=== PATIENT | male | born 1985 | race Caucasian/White ===

== ENCOUNTER 2017-11-25 13:50 | Inpatient (IN) ==
[2017-11-25] MEDS ORDERED: LOPERAMIDE 2 MG CAPSULE PO STA (14:51)
[2017-11-25] MEDS ORDERED: SODIUM CHLORIDE 0.9% 2,000 ML IV STA (14:51)
[2017-11-25] MEDS ORDERED: ONDANSETRON 4 MG/2 ML VIAL IV STA (14:51)
[2017-11-25] MEDS ORDERED: ONDANSETRON 4 MG/2 ML VIAL ONE ×2 (15:07→15:25)
[2017-11-25] MEDS ORDERED: LOPERAMIDE 2 MG CAPSULE ONE (15:25)
[2017-11-25 15:26] LABS: Basophils # 0.1 10*3/uL (0.0-0.2); Basophils % 0.4 % (0.0-0.8); Hematocrit 42.6 VOL% (42.0-52.0); Hemoglobin 15.4 GM/DL (14.0-18.0); Immature Granulocytes % 0.4 %; Immature Granulocytes Absolute 0.05 #; Lymphocytes # 0.3 10*3/uL (1.4-4.0); Lymphocytes % 2.6 % (21.2-54.2); Mean Corpuscular HGB Conc 36.2 GM/DL (32-36); Mean Corpuscular Hemoglobin 31 PG (27-34); Mean Corpuscular Volume 85.9 FL (87-102); Mean Platelet Volume 10.4 FL (9.6-12.0); Monocytes # 0.6 10*3/uL (0.11-0.8); Monocytes % 4.6 % (1.7-12.7); Neutrophils # 11.9 10*3/uL (1.4-7.4); Platelet Count 287 T/CUMM (130-400); Red Blood Count 4.96 MC/CUMM (3.8-5.5); Red Cell Distribution Width 13.2 % (9.3-17.3); White Blood Count 12.9 T/CUMM (4-12)
[2017-11-25 15:45] LABS: Albumin 3.9 G/DL (3.4-5.0); Bilirubin,Total 0.9 MG/DL (0.2-1.0); Calcium 8.6 MG/DL (8.5-10.1); Osmolality,Calculated 287.3 MOS/KG (273-304); Potassium 2.9 MMOL/L (3.5-5.1); Total Protein 7.6 G/DL (6.4-8.3)
[2017-11-25 18:11] LABS: Band Neutrophils 2 % (0-10); Lymphocytes 1 % (20-55); Platelet Estimate Normal; Segmented Neutrophils 95 % (50-85); Total Cells Counted 100
[2017-11-25] MEDS ORDERED: ONDANSETRON 4 MG/2 ML VIAL IV PRN (18:39)
[2017-11-25] MEDS: SODIUM CHLOR 0.9% KCL 40 MEQ 40 MEQ/1,000 ML BAG IV SCH (20:11)
[2017-11-25] MEDS: POTASSIUM CHLORIDE 20 MEQ TABLET PO SCH (21:23)
[2017-11-25] MEDS: ACETAMINOPHEN 325 MG TABLET PO PRN (22:20)
[2017-11-25] MEDS: CEFEPIME 1,000 MG in SYRINGE 1 EACH IV SCH (22:40)
[2017-11-26] MEDS: CEFEPIME 1,000 MG in SYRINGE 1 EACH IV SCH (06:04)
[2017-11-26] MEDS: SODIUM CHLOR 0.9% KCL 40 MEQ 40 MEQ/1,000 ML BAG IV SCH ×2 (06:08→17:08)
[2017-11-26 06:30] LABS: Basophils % 0.3 % (0.0-0.8); Eosinophils % 0.5 % (0.00-10.9); Hematocrit 35.8 VOL% (42.0-52.0); Immature Granulocytes % 0.5 %; Immature Granulocytes Absolute 0.03 #; Lymphocytes # 0.8 10*3/uL (1.4-4.0); Lymphocytes % 12.6 % (21.2-54.2); Mean Corpuscular HGB Conc 35.8 GM/DL (32-36); Mean Corpuscular Hemoglobin 31 PG (27-34); Mean Corpuscular Volume 85.6 FL (87-102); Mean Platelet Volume 10.5 FL (9.6-12.0); Monocytes # 0.5 10*3/uL (0.11-0.8); Monocytes % 6.9 % (1.7-12.7); Neutrophils # 5.3 10*3/uL (1.4-7.4); Neutrophils % 79.2 % (38.7-73.9); Red Blood Count 4.18 MC/CUMM (3.8-5.5); Red Cell Distribution Width 13.7 % (9.3-17.3)
[2017-11-26 06:54] LABS: Hemoglobin 12.8 GM/DL (14.0-18.0); Platelet Count 186 T/CUMM (130-400); White Blood Count 6.7 T/CUMM (4-12)
[2017-11-26 07:10] LABS: Calcium 7.2 MG/DL (8.5-10.1); Osmolality,Calculated 284.3 MOS/KG (273-304); Potassium 3.4 MMOL/L (3.5-5.1)
[2017-11-26] MEDS ORDERED: SODIUM CHLORIDE 0.9% 1,000 ML IV ONE (07:42)
[2017-11-26] MEDS: POTASSIUM CHLORIDE 20 MEQ TABLET PO SCH ×2 (08:13→20:38)
[2017-11-26] MEDS: ESCITALOPRAM 10 MG TABLET PO SCH (08:14)
[2017-11-26] MEDS: PANTOPRAZOLE 40 MG VIAL IV SCH (08:14)
[2017-11-26] MEDS: ACETAMINOPHEN 325 MG TABLET PO PRN ×2 (08:16→20:38)
[2017-11-26] MEDS ORDERED: EDARBYCLOR PO SCH (09:00)
[2017-11-26] MEDS ORDERED: CEFEPIME 1,000 MG in SYRINGE 1 EACH IV SCH (21:00)
[2017-11-27] MEDS: SODIUM CHLOR 0.9% KCL 40 MEQ 40 MEQ/1,000 ML BAG IV SCH (02:22)
[2017-11-27 06:21] LABS: Calcium 7.3 MG/DL (8.5-10.1); Osmolality,Calculated 281.1 MOS/KG (273-304); Potassium 3.6 MMOL/L (3.5-5.1)
[2017-11-27 07:57] VITALS: BP 115/77
[2017-11-27] MEDS: POTASSIUM CHLORIDE 20 MEQ TABLET PO SCH (08:25)
[2017-11-27] MEDS: ESCITALOPRAM 10 MG TABLET PO SCH (08:25)
[2017-11-27] MEDS: PANTOPRAZOLE 40 MG VIAL IV SCH (08:25)
[2017-11-27] MEDS ORDERED: CEFEPIME 1,000 MG in SYRINGE 1 EACH IV SCH (09:00)
== END 2017-11-27 10:55 | disposition home or self-care (01) | DRG 392 ==
LOC: N.ED 13:50 → N.EDINP 13:50 → N.2E 17:39
PROVIDERS: ADMIT Family Medicine; ATTEND Family Medicine